=== PATIENT | male | born 1995 | race Caucasian/White ===

== ENCOUNTER 2016-11-30 12:23 | Emergency (ER) | payer OTHER ==
[~2016-11-30] VITALS: Ht 167.6 cm; Wt 98.9 kg
[2016-11-30 13:34] LABS: INFLUENZA A NEG (NEG); INFLUENZA B NEG (NEG)
== END 2016-11-30 14:21 | disposition home or self-care (01) ==
LOC: CED 12:23 → CFTX 12:23
PROVIDERS: Physician Assistant
DX: J06.9 Acute upper respiratory infection, unspecified (principal); F39 Unspecified mood [affective] disorder
CPT/HCPCS: 87651; 87804; 99283